=== PATIENT | male | born 1950 | race Caucasian/White ===

== ENCOUNTER 2017-01-28 13:17 | Emergency (ER) | payer MEDICARE ==
[2017-01-28 14:04] LABS: INR 1.5; PARTIAL THROMBOPLASTIN TIME 33 sec (24-38)
[2017-01-28 14:10] LABS: ALBUMIN 4.1 g/dL (3.5-5.0); ALKALINE PHOSPHATASE 47 U/L (38-126); ALT 38 U/L (21-72); AST 19 U/L (17-59); BILIRUBIN, DIRECT 0.8 mg/dL (0.0-0.4); BILIRUBIN, TOTAL 3.1 mg/dL (0.2-1.3); CALCIUM 9.2 mg/dL (8.4-10.2); CHLORIDE 94 mmol/L (98-107); GLUCOSE 118 mg/dL (70-100); SODIUM 129 mmol/L (137-145); TOTAL PROTEIN 7.2 g/dL (6.3-8.2)
[2017-01-28 14:18] LABS: BLOOD UREA NITROGEN 153 mg/dL (9-20)
[2017-01-28 14:19] LABS: EST GLOMERULAR FILTRATION RATE 3 mL/min
[2017-01-28 14:41] LABS: HEMATOCRIT 32.6 % (42.0-54.0); HEMOGLOBIN 11.2 g/dL (14.0-18.0); MEAN CELL VOLUME 107.6 fL (80.0-100.0); MEAN CORPUS. HGB CONCENTRATION 34.2 g/dL (32.0-36.0); MEAN CORPUSCULAR HEMOGLOBIN 36.8 pg (29.0-35.0); MEAN PLATELET VOLUME 10.4 fL (7.4-10.4); PLATELET COUNT 225 X 10^3uL (130-440); RED BLOOD COUNT 3.03 X 10^6uL (4.20-6.10); RED CELL DISTRIBUTION WIDTH 11.8 % (11.5-14.5)
[2017-01-28 14:42] LABS: BAND% (Manual) 0 % (0.0-1.0); BASOPHIL % (Manual) 0 % (0.0-2.0); EOSINOPHIL % (Manual) 0 % (0.0-6.0); LYMPHOCYTE % (Manual) 1 % (20.0-40.0); MONOCYTE % (Manual) 11 % (2.0-10.0); NEUTROPHIL % (Manual) 88 % (54.0-75.0); PLATELET ESTIMATE ADEQUATE
--- NOTE | 2017-01-28 15:05 | CT REPORT ---
HISTORY: Rectal bleeding, hematuria, urinary retention COMPARISON: None. TECHNIQUE: This examination was performed using automated exposure control, adjustment of mA or kV according to patient size, and/or use of iterative reconstruction technique. Axial contiguous images of the abdome n and pelvis were obtained without oral or IV contrast, coronal reformat images also performed. No IV contrast was given due to an elevated creatinine FINDINGS: Lung bases are clear. Heart size is mildly enlarged. A small calcified gallstone is evident. No evide nce for inflammation around the gallbladder. The liver, adrenal glands, and pancreas appear normal given the lack of contrast. The spleen appears absent. There is a small splenule in the splenic bed region. There is mild bilateral hydronephrosis. No renal stone. There is mild to moderate hydroureter bilater ally. In the distal left ureter, there appears to be a nonobstructing small, 1 to 2 mm stone. No othe r ureteral stones. The bladder contains a catheter. There is significant prostatic enlargement. There are some sigmoid diverticula without evidence of acute diverticulitis. The bowel is otherwise u nremarkable given the lack of contrast. There is normal alignment to the lumbar spine. IMPRESSION: Mild bilateral hydronephrosis and hydroureter. No renal stones. There is a questionable small, 1 to 2 mm nonobstructing distal left ureteral stone. More likely the obstruction is likely related to the e nlarged prostate gland. The bladder is unremarkable. Sigmoid diverticulosis without findings of acute diverticulitis. The spleen appears absent. Gallstone without changes of cholecystitis. Final Electronic Signature: This report was electronically signed by Marco Antonio Chavarria MD on 01/28/2017 3 :03 PM. lisandro /
[2017-01-28 15:14] LABS: ABO GROUP TYPE O; ANTIBODY SCREEN NEGATIVE; RH TYPE NEGATIVE
[2017-01-28 15:30] LABS: URINE MUCUS NONE SEEN (Up to 25%)
[2017-01-28 16:15] LABS: URINE APPEARANCE CLEAR; URINE COLOR DARK YELLOW
[2017-01-28 16:16] LABS: URINE BILIRUBIN NEGATIVE (NEGATIVE); URINE BLOOD 50 Ery/uL (2+) (NEGATIVE); URINE GLUCOSE NORMAL (NEGATIVE); URINE KETONE NEGATIVE (NEGATIVE); URINE LEUKOCYTE ESTERASE NEGATIVE (NEGATIVE); URINE NITRITE NEGATIVE (NEGATIVE); URINE PH 5.5 (5-7); URINE PROTEIN NEGATIVE (NEG - TRACE); URINE RBC 0-5/hpf (0-5/hpf); URINE UROBILINOGEN 0.2mg/dL (Normal) (NEG-1mg/dL); URINE WBC 0-4/hpf (0-4/hpf)
[2017-01-28 16:17] LABS: URINE BACTERIA NONE SEEN (<10/hpf); URINE SPERM NONE SEEN; URINE SQUAMOUS EPITHELIAL CELL 0-5/hpf (<= 15/hpf)
--- NOTE | 2017-01-28 16:56 | ER PHYSICIAN DOCUMENTATION ---
Physician Documentation [facility] Name:Harpal Sanchez Age:66 yrs Sex:Male :1950 Arrival Date:01/28/2017 Time:13:17 BedTrauma-A Private MD: Slim Dowling Disposition: 01/30 09:53 Chart complete. tl1 Disposition: 01/28/17 15:51 Transfer ordered to [facility]. Diagnosis are Chronic Renal Failure/Insufficiency, Hyperkalemia, Bleeding Hemorrhoids, Hyperbilirubinemia in [place]. - Reason for transfer: Specialty. - Accepting physician is Mary Castellanos. - Condition is Fair. - Problem is new. - Symptoms are unchanged. COBRA Form completed? Yes Transfer - Mode of Transportation Ambulance HPI: 01/28 13:25 This 66 yrs old Male presents to ER via Walk In with complaints of Rectal tl1 Bleeding. 13:25 The patient presents to the emergency department with bleeding from the rectum/anus, tl1 that is mild. Onset: The symptom(s)/episode began/occurred suddenly, this morning. Context: the patient has a known history of hemorrhoids. History very difficult to ascertain. reports increasingly clouded thinking over the last several weeks. Patient is unable to meaningfully contribute to his history.. Historical: - Allergies: SULFA (SULFONAMIDES); - PMHx: GLUCOSE 6 PHOSPHATE DEHYDROGENASE; DEMENTIA; TBI; THROMBOCYTOPENIA; SLEEP APNEA; PULMONARY EMBOLISM; - PSHx: TONSILLECTOMY; SPLENECTOMY; - Tetanus: < 10 years. - Ebola Screening: : Patient negative for fever greater than or equal to 101.5 degrees Fahrenheit, and additional compatible Ebola Virus Disease symptoms. - Immunization history: Flu Vaccine < 1 year. - Social history: Smoking status: Patient states was never smoker of tobacco. ROS: 10:00 Abdomen/GI: Positive for rectal bleeding. tl1 10:00 Unable to obtain ROS due to baseline dementia, patient's inability to understand questions, speech incomprehensible; sort of a word salad.. Exam: 10:00 Constitutional: This is a well developed, well nourished patient who is awake, alert, tl1 and in no acute distress. 10:00 Head/face: Exam is negative for acute changes. 10:00 Eyes: Exam is negative for acute changes. 10:00 ENT: Mouth: Oral mucosa: pink and intact, dry. 10:00 Neck: ROM/movement: is normal, is supple, Lymph nodes: no appreciated lymphadenopathy. 10:00 Chest/axilla: Palpation: tenderness, is not appreciated. 10:00 Cardiovascular: Rate: normal, Rhythm: regular, Heart sounds: normal, Edema: is not appreciated, JVD: is not appreciated. 10:00 Respiratory: Respirations: normal, Breath sounds: are normal. 10:00 Abdomen/GI: Bowel sounds: normal, Palpation: abdomen is soft and non-tender, Rectal exam: Prostate: enlarged, rectal tone normal, Stool: trace heme positive clear residue. , hemorrhoid(s), external, with inflammation, with pain. 10:00 Musculoskeletal/extremity: Extremities: all appear grossly normal, with no appreciated pain with palpation. 10:00 Skin: Exam negative for acute changes. 10:00 Neuro: Orientation: unable to test, Mentation: slow to respond, Memory: unable to test, Cranial nerves: grossly normal, Motor: moves all fours, Gait: not tested. Vital Signs: 13:45 BP 155 / 65; Pulse 72; Resp 17; Temp 97.9(O); Pulse Ox 95% on R/A; Weight 78.47 kg; rh Height 6 ft. 1 in. (185.42 cm); Pain 5/10; 14:19 BP 155 / 78; Pulse 70; Resp 16; Pulse Ox 92% on R/A; Pain 0/10; rh 15:05 BP 135 / 81; Pulse 79; Resp 15; Pulse Ox 93% on R/A; Pain 0/10; rh 15:42 BP 147 / 88; Pulse 82; Resp 18; Pulse Ox 96% on R/A; Pain 0/10; rh 16:32 BP 162 / 91; Pulse 85; Resp 16; Pulse Ox 94% on R/A; Pain 0/10; rh 13:45 Body Mass Index 22.82 (78.47 kg, 185.42 cm) rh MDM: 13:25 Patient medically screened. tl1 23:52 Differential diagnosis: hemorrhoids, hepatic failure, renal failure, SCHOOL NURSE disease, other tl1 metabolic/drug problems. Data reviewed: vital signs, nurses notes, old medical records, lab test result(s), radiologic studies, and as a result, I will *Transfer Patient. Counseling: I had a detailed discussion with the patient and/or guardian regarding: the historical points, exam findings, and any diagnostic results supporting the discharge/admit diagnosis, lab results, radiology results, the need to transfer to another facility. 23:52 Special discussion: He has an obstructive uropathy with renal failure and needs tl1 transfer for consideration of initiation of hemodyalisis.. ED course: lindsay catheter was placed with return of 2300 ml of clear urine.. 01/28 14:06 Order name: PROTIME/INR; Complete Time: 15:02 EDKY 01/28 Interpretation: Abnormal: PROTIME 19.9; subtherapeutic. tl1 01/28 14:06 Order name: PARTIAL THROMBOPLASTIN TIME; Complete Time: 15:02 EDKY 01/28 15:00 Interpretation: Normal. tl1 01/28 14:19 Order name: BASIC METABOLIC PANEL; Complete Time: 15:02 EDKY 01/28 15:01 Interpretation: Abnormal: SODIUM 129; POTASSIUM 6.0; CHLORIDE 94; CARBON DIOXIDE 14; tl1 GLUCOSE 118; BLOOD UREA NITROGEN 153; CREATININE 16.0. 01/28 14:19 Order name: HEPATIC PANEL; Complete Time: 15:02 EDKY 01/28 15:01 Interpretation: ALT 38; ALBUMIN 4.1; ALKALINE PHOSPHATASE 47; AST 19; BILIRUBIN, TOTAL tl1 3.1; BILIRUBIN, DIRECT 0.8; TOTAL PROTEIN 7.2. 01/28 14:42 Order name: CBC WITHOUT A DIFFERENTIAL; Complete Time: 15:02 EDKY 01/28 15:01 Interpretation: WHITE BLOOD COUNT 16.0; HEMOGLOBIN 11.2; HEMATOCRIT 32.6; MEAN CELL tl1 VOLUME 107.6; PLATELET COUNT 225. 01/28 14:43 Order name: MANUAL DIFFERENTIAL; Complete Time: 15:02 EDKY 01/28 15:02 Interpretation: Normal Except: NEUTROPHIL % (Manual) 88; LYMPHOCYTE % (Manual) 1; tl1 MONOCYTE % (Manual) 11; MACROCYTOSIS 10-19% OF CELLS. 01/28 15:14 Order name: ABO GROUP; Complete Time: 15:46 EDMS 01/28 15:14 Order name: RH TYPE; Complete Time: 15:46 EDKY 01/28 15:14 Order name: ANTIBODY SCREEN; Complete Time: 15:46 EDKY 01/28 16:17 Order name: UA W/ MICRO -CULTURE IF IND; Complete Time: 09:41 EDMS 01/30 09:40 Interpretation: Normal Except: URINE BLOOD 50 Demario/uL (2+). tl1 01/28 15:07 Order name: CAT SCAN; ABD/[place] [id number]; Complete Time: 15:46 EDMS 01/28 13:25 Order name: Continuous Cardiac Monitoring; Complete Time: 13:36 tl1 01/28 13:25 Order name: Hemocult Stool; Complete Time: 13:36 tl1 01/28 13:25 Order name: I & O; Complete Time: 13:36 tl1 01/28 13:25 Order name: IV large bore X 2; Complete Time: 13:36 tl1 01/28 13:25 Order name: NPO; Complete Time: 13:36 tl1 01/28 13:25 Order name: Oxygen; Complete Time: 13:36 tl1 01/28 13:25 Order name: Pulse Ox Continuous; Complete Time: 13:36 tl1 01/28 13:45 Order name: Bladder Scan by RN; Complete Time: 13:55 rh 01/28 13:45 Order name: Bladder Scan by RN; Complete Time: 13:55 tl1 01/28 14:10 Order name: Lindsay; Complete Time: 14:10 rh Dispensed Medications: No medications were administered Signatures: Slim Soliman MD MD [facility] Esha Ty
--- NOTE | 2017-01-28 16:56 | ER NURSING DOCUMENTATION ---
Nurse's Notes [facility] Name:Harpal Sanchez Age:66 yrs Sex:Male :1950 Arrival Date:01/28/2017 Time:13:17 BedTrauma-A Private MD: Diagnosis:Chronic Renal Failure/Insufficiency;Hyperkalemia;Bleeding Hemorrhoids;Hyperbilirubinemia in Presentation: 01/28 13:23 Acuity: CARLOS 2 rh 13:36 Presenting complaint: Patient states: Pt has had some dizziness along with some rectal rh bleeding. Pt reports hx of hemorrhoids and constipation for "some while" . PT was seen by DR bhat and prescribed stool softeners. He had some diarrhea last night, comes in today for some "bloating and abdominal discomfort". Transition of care: Home. 13:36 Method Of Arrival: Walk In Triage Assessment: 13:38 General: Appears in no apparent distress, Behavior is cooperative, Smells of. Pain: rh Complains of pain in suprapubic area, right lower quadrant and left lower quadrant. EENT: Oral mucosa is dry. Neuro: Level of Consciousness is awake, alert, obeys commands, Oriented to person, place, time, event. Cardiovascular: Capillary refill < 3 seconds. Historical: - Allergies: SULFA (SULFONAMIDES); - PMHx: GLUCOSE 6 PHOSPHATE DEHYDROGENASE; DEMENTIA; TBI; THROMBOCYTOPENIA; SLEEP APNEA; PULMONARY EMBOLISM; - PSHx: TONSILLECTOMY; SPLENECTOMY; - Tetanus: < 10 years. - Ebola Screening: : Patient negative for fever greater than or equal to 101.5 degrees Fahrenheit, and additional compatible Ebola Virus Disease symptoms. - Immunization history: Flu Vaccine < 1 year. - Social history: Smoking status: Patient states was never smoker of tobacco. Screenin:46 Infectious Disease Risk None. Abuse screen: Denies threats or abuse. Denies injuries rh from another. Nutritional screening: No deficits noted. Assessment: 13:46 See Triage Assessment done by same RN. 15:00 Reassessment: Pt was cathed and had immediate relief of his abdominal pain, belly is rh soft and non tender now. . 15:21 Reassessment: PT and his sister and very poor medical historians. They do not know if rh he is actually allergic to any medications but state that due to his medical condition he has drug interactions that hose turner poorly. Pt does not know what the name of the hospital he was last at is. Sister is working on contacting daughter to get med hx. However his PCP is no longer at their facility and the daughter can't log in to their hospital portal for PM HX. 15:41 Reassessment: Spoke with power of prosecuting attorney, states that patient should be on a few rh medications, however since he has dementia and can't remember to take the meds, he just isn't taking any meds anymore. . Vital Signs: 13:45 BP 155 / 65; Pulse 72; Resp 17; Temp 97.9(O); Pulse Ox 95% on R/A; Weight 78.47 kg; rh Height 6 ft. 1 in. (185.42 cm); Pain 5/10; 14:19 BP 155 / 78; Pulse 70; Resp 16; Pulse Ox 92% on R/A; Pain 0/10; rh 15:05 BP 135 / 81; Pulse 79; Resp 15; Pulse Ox 93% on R/A; Pain 0/10; rh 15:42 BP 147 / 88; Pulse 82; Resp 18; Pulse Ox 96% on R/A; Pain 0/10; rh 16:32 BP 162 / 91; Pulse 85; Resp 16; Pulse Ox 94% on R/A; Pain 0/10; rh 13:45 Body Mass Index 22.82 (78.47 kg, 185.42 cm) rh ED Course: 13:18 Patient arrived in ED. ama 13:23 Slim Sloiman MD is Attending Physician. tl1 13:23 Triage completed. rh 13:30 Inserted peripheral IV: 20 gauge in left forearm and blood collected. rh 13:35 Esha Ty is Primary Nurse. rh 13:45 Bladder Scan performed. Volume in cc: >1000. rh 13:46 Notified ED Physician of patient's arrival and chief complaint. Dr. Soliman notified. rh 13:46 Valuables Remains with patient Patient has correct armband on for positive rh identification. Placed in gown. Bed in low position. Call light in reach. Side rails up X 1. 14:10 Dejesus cath inserted 16 Fr. Balloon inflated. Urine specimen collected. returned clear rh yellow urine. Patient tolerated well. 14:[address] pm1 14:[address] back from [address]. pm1 Administered Medications: No medications were administered Intake: 16:49 yellow urine rh Output: 14:18 Urine: 2200ml (Dejesus); Total: 2200ml. rh 15:58 Urine: 2000ml (Dejesus); Total: 4200ml. rh 16:49 Urine: 500ml (Dejesus); Total: 4700ml. rh 16:49 yellow urine rh Outcome: 15:51 ER care complete, transfer ordered by . tl1 16:43 Transferred: Patient will be transferred to: [facility]. Facility rh Acceptance Time: January 28, 2017 at 15:55 Patient's face sheet was faxed to accepting facility. Face Sheet included patient's name, address, age, gender, contact information and insurance information. Patient will be transported by: [facility]. Report called to: MICKEY Donato Nurse and Physician Charting and Notes were sent to Accepting Facility. All tests and/or procedures with results, if applicable, were sent to accepting facility. 16:43 Condition: stable 16:43 Discharge Assessment: Patient awake, alert and oriented x 3. No cognitive and/or functional deficits noted. Patient verbalized understanding of disposition instructions. 16:43 Instructed on need for transfer 16:55 Patient left the ED. rh 17:03 Report given to MICKEY Donato [facility] Signatures: Addie Ascencio pm1 Som Maloney, Slim Osei MD MD tl1 Esha Ty rh
== END 2017-01-28 16:56 | disposition short-term general hospital (02) ==
LOC: ER 13:17
DX: N18.9 Chronic kidney disease, unspecified (principal); K64.8 Other hemorrhoids; E87.5 Hyperkalemia; E80.6 Other disorders of bilirubin metabolism; N40.3 Nodular prostate with lower urinary tract symptoms; N20.1 Calculus of ureter; N13.9 Obstructive and reflux uropathy, unspecified; R31.9 Hematuria, unspecified; F03.90 Unspecified dementia, unspecified severity, without behavioral disturbance, psychotic disturbance, mood disturbance, and anxiety; E86.0 Dehydration; Z46.6 Encounter for fitting and adjustment of urinary device; Z79.899 Other long term (current) drug therapy; Z99.89 Dependence on other enabling machines and devices; Z74.3 Need for continuous supervision
CPT/HCPCS: 51702; 74176; 80048; 80076; 81001; 85007; 85027; 85610; 85730; 86850; 86900; 86901; 99284; 99285; A0425; A0429

== ENCOUNTER 2017-02-22 11:56 | Emergency (ER) | payer MEDICARE ==
--- NOTE | 2017-02-22 13:07 | ER NURSING DOCUMENTATION ---
Nurse's Notes [facility] Name:Harpal Sanchez Age:66 yrs Sex:Male :1950 Arrival Date:02/22/2017 Time:11:56 Bed1 Private MD: Diagnosis:Urinary Retention Presentation: 02/22 12:08 Acuity: CARLOS 4 12:15 Presenting complaint: Patient states: Pt is unable to clearly state why he came to the ED. He has memory problems. His sister (contacted by phone), states that pt was concerned about his lindsay coming out. Pt denies any pain or discomfort. Transition of care: patient was not received from another setting of care. 12:15 Method Of Arrival: Private Vehicle Triage Assessment: 12:23 General: Appears in no apparent distress, Behavior is cooperative, pleasant. Pain: tg Denies pain. Neuro: Level of Consciousness is awake, alert, Oriented to person, place. Respiratory: Respiratory effort is even, unlabored. GI: Abdomen is non- distended. : lindsay cath appears in place, urine appears cloudy. Pt was concerned that the lindsay was "coming out," but has been reassured that there is a balloon on the end of the lindsay keeping it in place. Derm: Skin is pink, warm & dry. Historical: - Allergies: SULFA (SULFONAMIDES); - Home Meds: 1. unknown - PMHx: DEMENTIA; TBI; GLUCOSE 6 PHOSPHATE DEHYDROGENASE; THROMBOCYTOPENIA; SLEEP APNEA; PULMONARY EMBOLISM; Chronic Renal Failure/Insufficiency (January 28, 2017); Hyperkalemia (January 28, 2017); Bleeding Hemorrhoids (January 28, 2017); Hyperbilirubinemia in (January 28, 2017); - PSHx: TONSILLECTOMY; SPLENECTOMY; - Tetanus: unknown. - Ebola Screening: : Patient negative for fever greater than or equal to 101.5 degrees Fahrenheit, and additional compatible Ebola Virus Disease symptoms. Patient denies exposure to infectious person. Patient denies travel to an Ebola-affected area in the 21 days before illness onset. No symptoms or risks identified at this time. . - Immunization history: Flu Vaccine unknown. - Social history: Smoking status: unknown if patient ever smoked tobacco. - History obtained from: Previous [facility] visit. Screenin:50 Infectious Disease Risk Unable to Obtain. Abuse screen: Denies threats or abuse. Denies tg injuries from another. Nutritional screening: No deficits noted. Assessment: 13:01 Reassessment: Pt's sister, Jaymie, reports that pt is ok to drive, knows his way home, tg and is able to drive in a safe manner. Pt is steady on his feet, stable gait, and is able to articulate where he lives and how to get there. . Vital Signs: 12:00 BP 155 / 68; Pulse 74; Resp 16; Temp 98.1(O); Pulse Ox 95% on R/A; Pain 0/10; tg ED Course: 12:01 Patient arrived in ED. dp 12:08 Alberto Myers RN is Primary Nurse. tg 12:08 Triage completed. tg 12:23 Ulices Conner MD is Attending Physician. sc 12:28 Arm band placed on Bed in low position HOB Elevated Side rails up x1. tg 12:50 Valuables Remains with patient. tg Administered Medications: No medications were administered Outcome: 13:01 Discharged to home ambulatory. tg 13:01 Condition: stable 13:01 Discharge Assessment: Patient awake and alert. 13:01 Instructed on discharge instructions, follow up and referral plans. 13:03 Discharge ordered by . sc 13:06 Patient left the ED. tg Signatures: Alberto Myers RN RN tg Ulices Conner MD MD sd Lakeisha Brunson dp
--- NOTE | 2017-02-22 13:07 | ER PHYSICIAN DOCUMENTATION ---
Physician Documentation [facility] Name:Harpal Sanchez Age:66 yrs Sex:Male :1950 Arrival Date:02/22/2017 Time:11:56 Bed1 Private MD: Ulices Martin Disposition: 02/22/17 13:03 Discharged to Home/Self Care. Impression: Urinary Retention. - Condition is Good. - Discharge Instructions: URINARY RETENTION, Male, Catheterization, Ureteral - PARNELL CATHETER CARE. - Medical Reconciliation form form. - Follow up: Private Physician; When: 7 - 10 days; Reason: Continuance of care. - Problem is an ongoing problem. - Symptoms are unchanged. HPI: 02/22 12:56 This 66 yrs old Male presents to ER via Private Vehicle with complaints of sc Problem With Urinary Catheter. 12:56 The patient presents with a Parnell catheter problem, was pulled out accidentally. Onset: sc The symptom(s)/episode began/occurred today. Associated signs and symptoms: The patient has no apparent associated signs or symptoms. Severity of symptoms: At their worst the symptoms were very mild. Historical: - Allergies: SULFA (SULFONAMIDES); - Home Meds: 1. unknown - PMHx: DEMENTIA; TBI; GLUCOSE 6 PHOSPHATE DEHYDROGENASE; THROMBOCYTOPENIA; SLEEP APNEA; PULMONARY EMBOLISM; Chronic Renal Failure/Insufficiency (January 28, 2017); Hyperkalemia (January 28, 2017); Bleeding Hemorrhoids (January 28, 2017); Hyperbilirubinemia in [place] (January 28, 2017); - PSHx: TONSILLECTOMY; SPLENECTOMY; - Tetanus: unknown. - Ebola Screening: : Patient negative for fever greater than or equal to 101.5 degrees Fahrenheit, and additional compatible Ebola Virus Disease symptoms. Patient denies exposure to infectious person. Patient denies travel to an Ebola-affected area in the 21 days before illness onset. No symptoms or risks identified at this time. . - Immunization history: Flu Vaccine unknown. - Social history: Smoking status: unknown if patient ever smoked tobacco. - History obtained from: Previous [facility] visit. ROS: 12:57 Constitutional: Negative for fever, chills, and weight loss. sc Eyes: Negative for injury, pain, redness, and discharge. ENT: Negative for injury, pain, and discharge. Neck: Negative for injury, pain, and swelling. Cardiovascular: Negative for chest pain, palpitations, and edema. Respiratory: Negative for shortness of breath, cough, wheezing, and pleuritic chest pain. 12:57 Back: Negative for injury and pain. mn 12:57 : Positive for difficulty urinating, Negative for urinary symptoms. 12:57 Neuro: Positive for very poor memory ? dementia but much improved in past month with parnell placement. Exam: Constitutional: This is a well developed, well nourished patient who is awake, alert, and in no acute distress. Head/Face: Normocephalic, atraumatic. Eyes: Pupils equal round and reactive to light, extra-ocular motions intact. Lids and lashes normal. Conjunctiva and sclera are non-icteric and not injected. Cornea within normal limits. Periorbital areas with no swelling, redness, or edema. Neck: Trachea midline, no thyromegaly or masses palpated, and no cervical lymphadenopathy. Supple, full range of motion without nuchal rigidity, or vertebral point tenderness. No meningismus. Chest/axilla: Normal chest wall appearance and motion. Nontender with no deformity. No lesions are appreciated. Cardiovascular: Regular rate and rhythm with a normal S1 and S2. No gallops, murmurs, or rubs. Normal PMI, no JVD. No pulse deficits. 12:58 Respiratory: Lungs have equal breath sounds bilaterally, clear to auscultation and mn percussion. No rales, rhonchi or wheezes noted. No increased work of breathing, no retractions or nasal flaring. 12:58 : CVA tenderness, is absent, Bladder: is normal, a parnell is noted, urine is clear. 12:58 Neuro: Memory: immediate memory is intact, remote memory is impaired, recent memory is impaired, discussed care with his sister, urology follow up in 10 days, taking flomax, concern today was that parnell may have pulled out but inspection is ok. Vital Signs: 12:00 BP 155 / 68; Pulse 74; Resp 16; Temp 98.1(O); Pulse Ox 95% on R/A; Pain 0/10; tg MDM: 12:23 Patient medically screened. mn 13:01 Differential diagnosis: UTI, urinary retention, Parnell catheter problem. Data reviewed: mn vital signs, nurses notes, old medical records, and as a result, I will discharge patient. Counseling: I had a detailed discussion with the patient and/or guardian regarding: the historical points, exam findings, and any diagnostic results supporting the discharge/admit diagnosis, the need for outpatient follow up, to return to the emergency department if symptoms worsen or persist or if there are any questions or concerns that arise at home. Dispensed Medications: No medications were administered Signatures: Alberto Myers RN RN tg Chew, Scott, MD MD mn
== END 2017-02-22 13:07 | disposition home or self-care (01) ==
LOC: ER 11:56
DX: R33.9 Retention of urine, unspecified (principal); Z46.6 Encounter for fitting and adjustment of urinary device; F03.90 Unspecified dementia, unspecified severity, without behavioral disturbance, psychotic disturbance, mood disturbance, and anxiety; Z79.899 Other long term (current) drug therapy
CPT/HCPCS: 99281; 99282

== ENCOUNTER 2017-03-05 18:29 | Emergency (ER) | payer MEDICARE ==
[2017-03-05] MEDS ORDERED: WATER IRRIG 1,000 ML BOTTLE ONE (19:49)
[2017-03-05 20:09] LABS: URINE MUCUS NONE SEEN (Up to 25%); URINE SQUAMOUS EPITHELIAL CELL NONE SEEN (<= 15/hpf)
[2017-03-05 20:23] LABS: URINE APPEARANCE CLOUDY; URINE COLOR YELLOW; URINE LEUKOCYTE ESTERASE 25 WBC/uL (1+) (NEGATIVE); URINE NITRITE POSITIVE (NEGATIVE); URINE SPECIFIC GRAVITY 1.015 (0.001-1.035)
[2017-03-05 20:24] LABS: URINE BILIRUBIN NEGATIVE (NEGATIVE); URINE BLOOD 50 Ery/uL (2+) (NEGATIVE); URINE GLUCOSE NORMAL (NEGATIVE); URINE KETONE NEGATIVE (NEGATIVE); URINE PROTEIN 100mg/dL (2+) (NEG - TRACE); URINE UROBILINOGEN 0.2mg/dL (Normal) (NEG-1mg/dL)
[2017-03-05 20:27] LABS: URINE BACTERIA >50 ORGANISMS/hpf (<10/hpf)
--- NOTE | 2017-03-05 20:37 | ER PHYSICIAN DOCUMENTATION ---
Physician Documentation [facility] Name:Harpal Sanchez Age:66 yrs Sex:Male :1950 Arrival Date:03/05/2017 Time:18:29 Bed5 Private MD: Slim Dowling Disposition: 03/06 03:38 Chart complete. tl1 Disposition: 03/05/17 20:16 Discharged to Home/Self Care. Impression: Urinary Tract Infection (UTI) - POSSIBLE. - Condition is Good. - Discharge Instructions: BLADDER INFECTION, Male (Adult). - Medical Reconciliation form form. - Follow up: Radha Manuel MD; When: Tomorrow; Reason: Recheck today's complaints. - Problem is new. - Symptoms have improved. - Notes: YOU PROBABLY DO NOT HAVE A URINARY TRACT INFECTION NOW. A URINE CULTURE HAS BEEN SENT. YOU SHOULD FOLLOW UP SCHEDULED TOMORROW IN THE [facility]. MAKE SURE YOUR PARNELL BAG IS HANGING DOWN LOW POSSIBLE HPI: 03/05 19:00 This 66 yrs old Male presents to ER via Private Vehicle with complaints of tl1 Urinary Problem. 19:00 The patient presents with a Parnell catheter problem, is not draining. Onset: The tl1 symptom(s)/episode began/occurred gradually, today. He has severe dementia and trouble with the history. he is here by himself. He thinks his parnell may not be draining, but is unable to give specifics. He has no other complaints. Denied f/c/s/. No flank pain or abdominal/suprapubic pain. He has no other complaints.. Historical: - Allergies: SULFA (SULFONAMIDES); - Home Meds: 1. unknown - PMHx: DEMENTIA; TBI; GLUCOSE 6 PHOSPHATE DEHYDROGENASE; THROMBOCYTOPENIA; SLEEP APNEA; PULMONARY EMBOLISM; Chronic Renal Failure/Insufficiency (January 28, 2017); Hyperkalemia (January 28, 2017); Bleeding Hemorrhoids (January 28, 2017); Hyperbilirubinemia in [place] (January 28, 2017); Urinary Retention (February 22, 2017); Urinary Retention (February 22, 2017); Urinary Retention (February 22, 2017); - PSHx: TONSILLECTOMY; SPLENECTOMY; - Tetanus: unknown. - Ebola Screening: : Patient negative for fever greater than or equal to 101.5 degrees Fahrenheit, and additional compatible Ebola Virus Disease symptoms. Patient denies exposure to infectious person. Patient denies travel to an Ebola-affected area in the 21 days before illness onset. No symptoms or risks identified at this time. . - Immunization history: Pneumococcal vaccine status is unknown, Flu Vaccine unknown. - Social history: Smoking status: Patient states was never smoker of tobacco. Patient/guardian denies using alcohol. ROS: 19:00 : Negative for urinary symptoms, hematuria, pelvic pain, flank pain, penile tl1 discharge, penile pain. 19:00 All other systems are negative. Exam: 19:00 Constitutional: This is a well developed, well nourished patient who is awake, alert, tl1 and in no acute distress. 19:00 Cardiovascular: Rate: normal. 19:00 Respiratory: Respirations: normal. 19:00 : CVA tenderness, is absent, Bladder: tenderness, is not appreciated. Vital Signs: 18:34 BP 134 / 83; Pulse 77; Resp 16; Temp 99.2(O); Pulse Ox 93% on R/A; Weight 74.84 kg; arc Height 6 ft. 1 in. (185.42 cm); Pain 1/10; 19:48 BP 134 / 80; Pulse 66; Pulse Ox 94% on R/A; Pain 0/10; sj 18:34 Body Mass Index 21.77 (74.84 kg, 185.42 cm) arc MDM: 18:46 Patient medically screened. sc 20:00 Differential diagnosis: UTI, urinary retention, Parnell catheter problem. Data reviewed: tl1 vital signs, nurses notes, lab test result(s), urinalysis, and as a result, I will discharge patient. Counseling: I had a detailed discussion with the patient and/or guardian regarding: the historical points, exam findings, and any diagnostic results supporting the discharge/admit diagnosis, lab results, the need for outpatient follow up, with the patient's primary care provider, tomorrow, as scheduled., to return to the emergency department if symptoms worsen or persist or if there are any questions or concerns that arise at home. Response to treatment: There is no appreciated change of the patient's symptoms at this time, and as a result, I will discharge patient. Special discussion: There does not seem to be a problem with his Parnell catheter now. He was provided fluid and had good urine output. The parnell flushed easily and drained well. The urine is dirty, consistent with penitentiary presence of a catheter and bladder colonization, but it is not clear that he has a UTI. I think it is appropriate to wait for urine culture results and treat accordingly. I don't think he needs treatment acutely. He has an appointment tomorrow, as best as we can determine, with his PCP at the [facility].. ED course: Rested comfortably without complaint.. 03/05 20:29 Order name: UA W/ MICRO -CULTURE IF IND; Complete Time: 03:39 EDMS 03/06 03:39 Interpretation: Abnormal: URINE COLOR YELLOW; URINE APPEARANCE CLOUDY; URINE LEUKOCYTE tl1 ESTERASE 25 WBC/uL (1+); URINE NITRITE POSITIVE; URINE PROTEIN 100mg/dL (2+); URINE RBC 5-10/hpf; URINE WBC 10-25/hpf; URINE BACTERIA >50 ORGANISMS/hpf. 03/06 10:07 Order name: URINE CULTURE EDMS Dispensed Medications: No medications were administered Point of Care Testing: Urine Dip: 19:46 pH: 7.0; ; Specific [place]: 1.010; Ketones: Negative; Glucose: Negative; Protein: sj Positive (++); Leukocytes: Positive; Nitrite: Negative ; Blood: Large (+++); Bilirubin: Negative ; Urobilinogen: Normal Signatures: Ulices Conner MD MD ia Slim Soliman MD MD tl1 Mary Barton
--- NOTE | 2017-03-05 20:37 | ER NURSING DOCUMENTATION ---
Nurse's Notes [facility] Name:Harpal Sanchez Age:66 yrs Sex:Male :1950 Arrival Date:03/05/2017 Time:18:29 Bed5 Private MD: Diagnosis:Urinary Tract Infection (UTI)-POSSIBLE Presentation: 03/05 18:35 Acuity: CARLOS 4 rh 18:45 Presenting complaint: Patient states: indwelling catheter with poor urine output for sj last 2 to 3 days. Transition of care: Home. Notified ED Physician of patient's arrival and CC Dr. Conner notified. 18:45 Method Of Arrival: Private Vehicle sj Triage Assessment: 18:58 General: Appears in no apparent distress, Behavior is cooperative, pleasant. Pain: sj Denies pain. Neuro: Level of Consciousness is awake, alert, confused, Oriented to person, place, time, event, very poor short term memory. Unable to recall if he is drinking fluids, how much he emptied from catheter last night or this morning.. Cardiovascular: Capillary refill < 3 seconds. Respiratory: Respiratory effort is even, unlabored, Respiratory pattern is regular, symmetrical. : Dejesus in place Urine is bag is currently empty. Given tall glass of water. Reports poor urine output. Historical: - Allergies: SULFA (SULFONAMIDES); - Home Meds: 1. unknown - PMHx: DEMENTIA; TBI; GLUCOSE 6 PHOSPHATE DEHYDROGENASE; THROMBOCYTOPENIA; SLEEP APNEA; PULMONARY EMBOLISM; Chronic Renal Failure/Insufficiency (January 28, 2017); Hyperkalemia (January 28, 2017); Bleeding Hemorrhoids (January 28, 2017); Hyperbilirubinemia in (January 28, 2017); Urinary Retention (February 22, 2017); Urinary Retention (February 22, 2017); Urinary Retention (February 22, 2017); - PSHx: TONSILLECTOMY; SPLENECTOMY; - Tetanus: unknown. - Ebola Screening: : Patient negative for fever greater than or equal to 101.5 degrees Fahrenheit, and additional compatible Ebola Virus Disease symptoms. Patient denies exposure to infectious person. Patient denies travel to an Ebola-affected area in the 21 days before illness onset. No symptoms or risks identified at this time. . - Immunization history: Pneumococcal vaccine status is unknown, Flu Vaccine unknown. - Social history: Smoking status: Patient states was never smoker of tobacco. Patient/guardian denies using alcohol. Screenin:02 Infectious Disease Risk Other: unknown. Abuse screen: Denies threats or abuse. Denies sj injuries from another. Nutritional screening: No deficits noted. Assessment: 19:47 Reassessment: urine obtained directly from catheter, then flushed cath with 60 ml sj sterile water. Flushes easily. Drains well once put to gravity.. Vital Signs: 18:34 BP 134 / 83; Pulse 77; Resp 16; Temp 99.2(O); Pulse Ox 93% on R/A; Weight 74.84 kg; arc Height 6 ft. 1 in. (185.42 cm); Pain 1/10; 19:48 BP 134 / 80; Pulse 66; Pulse Ox 94% on R/A; Pain 0/10; sj 18:34 Body Mass Index 21.77 (74.84 kg, 185.42 cm) arc ED Course: 18:30 Patient arrived in ED. jt 18:35 Triage completed. 18:45 Mary Barton is Primary Nurse. sj 18:46 Ulices Conner MD is Attending Physician. vt 19:02 Notified ED Physician of patient's arrival and chief complaint. Dr. Soliman notified. sj 19:03 Valuables Remains with patient Patient has correct armband on for positive sj identification. Bed in low position. Call light in reach. Side rails up X 1. Pulse Ox - RN Monitoring Only NIBP On - RN Monitoring Only. 19:36 Attending Physician role handed off by Ulices Conner MD tl1 19:36 Slim Soliman MD is Attending Physician. tl1 20:15 Radha Manuel MD is Referral Physician. tl1 Administered Medications: No medications were administered Point of Care Testing: Urine Dip: 19:46 pH: 7.0; ; Specific [place]: 1.010; Ketones: Negative; Glucose: Negative; Protein: sj Positive (++); Leukocytes: Positive; Nitrite: Negative ; Blood: Large (+++); Bilirubin: Negative ; Urobilinogen: Normal Intake: 20:36 PO: 480ml; Total: 480ml. sj Output: 20:36 Urine: 700ml (Dejesus); Total: 700ml. sj Outcome: 20:16 Discharge ordered by . tl1 20:36 Discharged to home ambulatory, with family. sj 20:36 Condition: improved 20:36 Instructed on discharge instructions, follow up and referral plans. Demonstrated understanding of instructions. 20:36 Patient left the ED. 03/06 14:15 Discharge F/U Call: Unable to reach: no answer olga Signatures: Payal Brice, RN RN Ulices Chadwick MD MD vt Janny, MD CARMEN Smalls tl1 Cristiana Conner, Collins Ty, Esha Chase, Mary Warren
== END 2017-03-05 20:37 | disposition home or self-care (01) ==
LOC: ER 18:29
DX: T83.9XXA Unspecified complication of genitourinary prosthetic device, implant and graft, initial encounter (principal); R82.99 Other abnormal findings in urine; F03.90 Unspecified dementia, unspecified severity, without behavioral disturbance, psychotic disturbance, mood disturbance, and anxiety; N18.9 Chronic kidney disease, unspecified
CPT/HCPCS: 81001; 87077; 87086; 99282; A4217

== ENCOUNTER 2017-03-07 19:00 | Observation (INO) | payer MEDICARE ==
[2017-03-07 20:01] LABS: BLOOD UREA NITROGEN 25 mg/dL (9-20); CALCIUM 9.7 mg/dL (8.4-10.2); CHLORIDE 102 mmol/L (98-107); EST GLOMERULAR FILTRATION RATE > 60 mL/min; GLUCOSE 105 mg/dL (70-100); POTASSIUM 3.8 mmol/L (3.5-5.1); SODIUM 139 mmol/L (137-145)
[2017-03-07 20:09] LABS: HEMOGLOBIN 11.9 g/dL (14.0-18.0); MEAN CORPUSCULAR HEMOGLOBIN 37.5 pg (29.0-35.0); RED BLOOD COUNT 3.17 X 10^6uL (4.20-6.10); WHITE BLOOD COUNT 10.3 X 10^3uL (3.9-10.7)
[2017-03-07 20:10] LABS: PLATELET COUNT 371 X 10^3uL (130-440); RED CELL DISTRIBUTION WIDTH 9.1 % (11.5-14.5)
[2017-03-07] MEDS ORDERED: NORMAL SALINE MINI-BAG+ 100 ML IV ONE (20:10)
[2017-03-07] MEDS ORDERED: cefTRIAXone SODIUM 1,000 MG/10 ML VIAL ONE (20:10)
[2017-03-07 20:11] LABS: LYMPHOCYTES 22.3 % (20.0-40.0); MEAN PLATELET VOLUME 8.4 fL (7.4-10.4); NEUTROPHILS 61.3 % (54.0-75.0)
[2017-03-07 20:12] LABS: BASOPHIL# 0.1 X 10^3uL (0.0-0.1); BASOPHILS 0.8 % (0.0-2.0); EOSINOPHILS 2.6 % (0.0-6.0); EOSINOPHILS# 0.3 X 10^3uL (0.0-0.4); LYMPHOCYTES# 2.3 X 10^3uL (0.8-3.8); MONOCYTES# 1.3 X 10^3uL (0.2-1.0); NEUTROPHILS# 6.3 X 10^3uL (2.6-6.7)
[2017-03-07] MEDS ORDERED: ACETAMINOPHEN 325 MG TABLET PO PRN (20:45)
[2017-03-07] MEDS ORDERED: HOME MEDICATION LIST NEEDED 1 EA EACH MISC ONE (20:45)
[2017-03-07] MEDS ORDERED: ONDANSETRON ODT 4 MG TAB.RAPDIS PO PRN (20:45)
[2017-03-07 20:53] LABS: INR 1.4
[2017-03-07] MEDS ORDERED: NORMAL SALINE MINI IV SCH (21:00)
[2017-03-07] MEDS ORDERED: CEFTRIAXONE SODIUM IV SCH (21:00)
[2017-03-07] MEDS ORDERED: WARFARIN SODIUM 5 MG TABLET PO ONE (21:28)
[2017-03-07] MEDS: NORMAL SALINE 1,000 ML IV SCH (22:04)
[2017-03-08 06:00] LABS: BLOOD UREA NITROGEN 16 mg/dL (9-20); CALCIUM 9.1 mg/dL (8.4-10.2); CHLORIDE 107 mmol/L (98-107); EST GLOMERULAR FILTRATION RATE > 60 mL/min; GLUCOSE 94 mg/dL (70-100); POTASSIUM 3.9 mmol/L (3.5-5.1); SODIUM 140 mmol/L (137-145)
[2017-03-08 06:16] LABS: HEMATOCRIT 33.8 % (42.0-54.0); HEMOGLOBIN 11.2 g/dL (14.0-18.0); LYMPHOCYTES 16.8 % (20.0-40.0); MEAN CORPUS. HGB CONCENTRATION 33.2 g/dL (32.0-36.0); MEAN CORPUSCULAR HEMOGLOBIN 38.2 pg (29.0-35.0); MEAN PLATELET VOLUME 8.8 fL (7.4-10.4); NEUTROPHILS 68.2 % (54.0-75.0); PLATELET COUNT 339 X 10^3uL (130-440); RED BLOOD COUNT 2.94 X 10^6uL (4.20-6.10); RED CELL DISTRIBUTION WIDTH 8.3 % (11.5-14.5); WHITE BLOOD COUNT 11.6 X 10^3uL (3.9-10.7)
[2017-03-08 06:17] LABS: BASOPHIL# 0.1 X 10^3uL (0.0-0.1); BASOPHILS 0.3 % (0.0-2.0); EOSINOPHILS 2.7 % (0.0-6.0); EOSINOPHILS# 0.3 X 10^3uL (0.0-0.4); MONOCYTES 11.7 % (2.0-10.0); MONOCYTES# 1.4 X 10^3uL (0.2-1.0); NEUTROPHILS# 7.9 X 10^3uL (2.6-6.7)
[2017-03-08] MEDS: NORMAL SALINE 1,000 ML IV SCH ×2 (07:24→17:22)
--- NOTE | 2017-03-08 08:40 | ER PHYSICIAN DOCUMENTATION ---
Physician Documentation [facility] Name:Harpal Sanchez Age:66 yrs Sex:Male :1950 Arrival Date:03/07/2017 Time:19:00 Bed4 Private MD:Physician, No ED Benny Mcghee Disposition: 03/07/17 20:43 Admit ordered for Koffi King. Preliminary diagnosis are Urinary Tract Infection (UTI), Confusion. - Bed requested for Medical/Surgical. - Condition is Fair. - Problem is new. - Symptoms are unchanged. 23 HR OBS Yes HPI: 03/07 20:18 This 66 yrs old Male presents to ER with complaints of Urinary Problem. ak 20:18 The patient presents with returns with concern of some discolor in catheter of urine. ak pt is a little bit of a difficult historian, relates that he has some trouble with timeline of this process, after discussing with pt as well as, with his permission, sister, pt moved here 1mo ago, prev in [facility], there he was having some urinary retention, prior to moving here 1mo ago had some hesitancy, actually saw uro there in [place], on 2 prostate meds, also on coumadin for g6pd def, also sees psych there, pt and sister relate some past stressors incl divorce and trauma, poss pseudodementia with depression, now about to transfer care to [facility], apparently pending Dr. Kaleb marie, has been to ED several times, apparently once in retention, had lindsay placed, had urine culture, this is growing but has not finalized, no abx as of yet. pt is also on psych med, cannot recall names. 20:22 of his meds. states no hx of bleeding and no other areas of bleeding, denies hx of uti. ak . 22:41 Associated signs and symptoms: Pertinent negatives: abdominal pain, constipation, ak diarrhea, dysuria, fever, nausea, vomiting. Severity of symptoms: At their worst the symptoms were mild, in the emergency department the symptoms are unchanged. Historical: - Allergies: SULFA (SULFONAMIDES); - Home Meds: 1. unknown - PMHx: DEMENTIA; TBI; GLUCOSE 6 PHOSPHATE DEHYDROGENASE; THROMBOCYTOPENIA; SLEEP APNEA; PULMONARY EMBOLISM; Chronic Renal Failure/Insufficiency (January 28, 2017); Hyperkalemia (January 28, 2017); Bleeding Hemorrhoids (January 28, 2017); Urinary Retention (February 22, 2017); Urinary Tract Infection (UTI) - POSSIBLE(March 05, 2017); - PSHx: TONSILLECTOMY; SPLENECTOMY; - Tetanus: < 10 years. - Ebola Screening: : Patient negative for fever greater than or equal to 101.5 degrees Fahrenheit, and additional compatible Ebola Virus Disease symptoms. Patient denies exposure to infectious person. Patient denies travel to an Ebola-affected area in the 21 days before illness onset. . - Family history: No immediate family members are acutely ill. - Immunization history: Pneumococcal vaccine is up to date, Flu Vaccine >1 year. - Social history: Smoking status: unknown if patient ever smoked tobacco. ROS: 20:37 : Positive for urinary symptoms, hematuria, Negative for pelvic pain, flank pain. ak 20:37 Neuro: Positive for increased forgetfulness, Negative for dizziness, headache, numbness, seizure activity, speech changes, syncope, negative for any marked changed in mental status although is more forgetful. 20:37 Psych: Positive for anxiety, depression, Negative for drug dependence, alcohol dependence, auditory hallucinations, visual hallucinations. 20:37 All other systems are negative. 22:41 Constitutional: Positive for fatigue, Negative for chills, fever, malaise, poor PO ak intake. Exam: 20:38 Constitutional: This is a well developed, well nourished patient who is awake, alert, ak and in no acute distress. 20:38 Cardiovascular: Rate: normal, Rhythm: regular. 20:38 Respiratory: the patient does not display signs of respiratory distress, Respirations: normal. 20:38 Abdomen/GI: Inspection: abdomen appears normal. 20:38 Abdomen/GI: Palpation: abdomen is soft and non-tender. 20:38 : CVA tenderness, is absent, Bladder: is normal, non-distended, non-tender, decompressed bladder on sono with balloon in bladder, normal inspection. lindsay in place. does have some red tinged urine in lindsay line. 20:38 Neuro: Orientation: aware of person, place, can recall some recent events but timeline distorted, aware of current problems, drove here to [facility] from his cabin, Mentation: lucid, able to follow commands, Motor: is normal, Sensation: is normal. Vital Signs: 19:12 BP 155 / 84; Pulse 98; Resp 17; Temp 98.9(TE); Pulse Ox 95% on R/A; Weight 74.84 kg; rh Height 6 ft. 1 in. (185.42 cm); Pain 3/10; 21:04 BP 122 / 74; Pulse 77; Resp 16; Pulse Ox 95% on R/A; Pain 0/10; rh 19:12 Body Mass Index 21.77 (74.84 kg, 185.42 cm) rh MDM: 19:27 Patient medically screened. ak 20:40 Differential diagnosis: pyelo, sepsis, uti, dementia, delerium. Data reviewed: vital ak signs, nurses notes, old medical records, lab test result(s), radiologic studies, and as a result, I will admit patient. ED course: d/w sister, pt, given worsening forgetfulness, my assessment currently, uti needs treatment, will start abx now, admit to ensure mental status improves, d/w Dr. Wolf who will admit, also nursing contacted pt's family who will bring up med list in am, cannot do so now. pt clinically physically appears well but definitely has some memory issues. bp mildly elevated but HD stable, not septic appearing. . 22:43 ED course: had noted inr, on coumadin, will give 10mg now, this should take care of VTE ak risk as well as help to bring back to therapeutic levels. treat uti. most likely hemorrhagic cystitis. . 03/07 20:03 Order name: BASIC METABOLIC PANEL [facility] 03/07 20:14 Order name: CBC AUTO DIF, MDIF/RMOR IF IND [facility] 03/07 20:54 Order name: PROTIME/INR [facility] 03/08 06:06 Order name: BASIC METABOLIC PANEL [facility] 03/08 06:18 Order name: CBC AUTO DIF, MDIF/RMOR IF IND [facility] 03/07 19:37 Order name: Urine Dip; Complete Time: 19:52 ak 03/07 19:38 Order name: Iv Saline Lock; Complete Time: 19:46 rh Dispensed Medications: 19:46 Drug: NS 0.9% 1000 ml; Route: IV; Rate: bolus; Site: left antecubital; rh 20:41 Follow up: IV Status: Completed infusion; IV Intake: 1000ml rh 19:57 Drug: Rocephin 1 grams; Route: IVPB; Site: left antecubital; rh 20:30 Follow up: IV Status: Completed infusion; IV Intake: 100ml rh 21:06 CANCELLED (Physician Discretion): Norvasc 5 mg PO once bw2 21:14 Drug: Coumadin 10 mg; Route: PO; rh 21:14 Follow up: Response: No adverse reaction rh Point of Care Testing: Urine Dip: 19:52 pH: 8.5; ; Specific [place]: 1.010; Ketones: Trace; Glucose: Negative; Protein: rh Positive (+++); Leukocytes: Positive; Nitrite: Negative ; Blood: Large (+++); Bilirubin: Small (+) ; Urobilinogen: Moderate Signatures: Payal Brice RN RN Esha Ty Benny Kurtz MD MD ks Spencer, [facility] bw2
--- NOTE | 2017-03-08 08:40 | ER NURSING DOCUMENTATION ---
Nurse's Notes [facility] Name:Harpal Sanchez Age:66 yrs Sex:Male :1950 Arrival Date:03/07/2017 Time:19:00 Bed4 Private MD:Physician, No Diagnosis:Urinary Tract Infection (UTI);Confusion Presentation: 03/07 19:03 Acuity: CARLOS 3 lp 21:32 Presenting complaint: Patient states: Pt states he has blood in the urine. Transition rh of care: Home. 21:32 Method Of Arrival: Private Vehicle Triage Assessment: 19:08 General: Appears in no apparent distress, Behavior is appropriate for age. rh 19:57 Pain: Complains of pain in groin. Neuro: Level of Consciousness is awake, alert, obeys commands, Oriented to person, place. Cardiovascular: Capillary refill < 3 seconds. Respiratory: Airway is patent Respiratory effort is even, unlabored, Denies shortness of breath. GI: Abdomen is non- distended Denies nausea. : Dejesus in place to gravity drainage Reports pain. Derm: Skin is intact, is healthy with good turgor, Skin is pink, warm & dry. Historical: - Allergies: SULFA (SULFONAMIDES); - Home Meds: 1. unknown - PMHx: DEMENTIA; TBI; GLUCOSE 6 PHOSPHATE DEHYDROGENASE; THROMBOCYTOPENIA; SLEEP APNEA; PULMONARY EMBOLISM; Chronic Renal Failure/Insufficiency (January 28, 2017); Hyperkalemia (January 28, 2017); Bleeding Hemorrhoids (January 28, 2017); Urinary Retention (February 22, 2017); Urinary Tract Infection (UTI) - POSSIBLE(March 05, 2017); - PSHx: TONSILLECTOMY; SPLENECTOMY; - Tetanus: < 10 years. - Ebola Screening: : Patient negative for fever greater than or equal to 101.5 degrees Fahrenheit, and additional compatible Ebola Virus Disease symptoms. Patient denies exposure to infectious person. Patient denies travel to an Ebola-affected area in the 21 days before illness onset. . - Family history: No immediate family members are acutely ill. - Immunization history: Pneumococcal vaccine is up to date, Flu Vaccine >1 year. - Social history: Smoking status: unknown if patient ever smoked tobacco. Screenin:12 Infectious Disease Risk None. Abuse screen: Denies threats or abuse. Denies injuries rh from another. Nutritional screening: No deficits noted. Assessment: 19:13 : Dejesus in place to gravity drainage Urine is blood tinged, Genitalia appear normal rh Reports pain urethra. 19:19 Reassessment: Spoke with patients sister with his permission, she states that he is rh forgetful and has dementia and forgets about his catheter a lot and has short term memory loss. He lives with the sister and her . Sister is in [place] currently. Vital Signs: 19:12 BP 155 / 84; Pulse 98; Resp 17; Temp 98.9(TE); Pulse Ox 95% on R/A; Weight 74.84 kg; rh Height 6 ft. 1 in. (185.42 cm); Pain 3/10; 21:04 BP 122 / 74; Pulse 77; Resp 16; Pulse Ox 95% on R/A; Pain 0/10; rh 19:12 Body Mass Index 21.77 (74.84 kg, 185.42 cm) rh ED Course: 19:01 Patient arrived in ED. ds 19:02 Physician, No is Private Physician. ds 19:03 Triage completed. lp 19:11 Esha Ty is Primary Nurse. rh 19:12 Notified ED Physician Other physician notified: DR KURTZ. rh 19:27 Benny Kurtz MD is Attending Physician. ak 20:41 Valuables Remains with patient Patient has correct armband on for positive rh identification. Placed in gown. Bed in low position. Call light in reach. Side rails up X 1. Warm blanket given. Pillow given. 20:43 Koffi King MD is Admitting Physician. ak Administered Medications: 19:46 Drug: NS 0.9% 1000 ml; Route: IV; Rate: bolus; Site: left antecubital; rh 20:41 Follow up: IV Status: Completed infusion; IV Intake: 1000ml rh 19:57 Drug: Rocephin 1 grams; Route: IVPB; Site: left antecubital; rh 20:30 Follow up: IV Status: Completed infusion; IV Intake: 100ml rh 21:06 CANCELLED (Physician Discretion): Norvasc 5 mg PO once bw2 21:14 Drug: Coumadin 10 mg; Route: PO; rh 21:14 Follow up: Response: No adverse reaction rh Point of Care Testing: Urine Dip: 19:52 pH: 8.5; ; Specific [place]: 1.010; Ketones: Trace; Glucose: Negative; Protein: rh Positive (+++); Leukocytes: Positive; Nitrite: Negative ; Blood: Large (+++); Bilirubin: Small (+) ; Urobilinogen: Moderate Intake: 20:30 IV: 100ml; Total: 100ml. rh 20:41 IV: 1000ml; Total: 1100ml. Outcome: 20:43 Decision to Admit by Provider. ct 21:32 Admitted to Med/surg accompanied by nurse, via stretcher, with chart. 21:32 Condition: stable 21:32 Discharge Assessment: Patient awake, alert and oriented x 3. No cognitive and/or functional deficits noted. Patient verbalized understanding of disposition instructions. 21:32 Instructed on need to admit 21:33 Patient left the ED. Signatures: Payal Brice RN RN Cristina Morales, Esha Coelho Benny Kurtz MD MD ak [place], [place] [id number]
[2017-03-08] MEDS: WARFARIN SODIUM 2 MG TABLET PO SCH (16:21)
[2017-03-08] MEDS: FINASTERIDE 5 MG TABLET PO SCH (16:21)
--- NOTE | 2017-03-08 18:12 | HISTORY & PHYSICAL ---
DATE OF ADMISSION: 03/07/17 ATTENDING PHYSICIAN: Koffi King MD CHIEF COMPLAINT: Confusion. HISTORY OF PRESENT ILLNESS: Patient is a 66-year-old male who presented to the Emergency Room with dysuria with discoloration of the urine in his Dejesus catheter. No fevers or chills. Apparently he had some issues with urinary retention about 1 month ago for which he was seen by Urology in [place], [place] and was prescribed 2 prostate medications. Patient has dementia and is an extremely poor historian. 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 Patient's sister is moving him from [place], [place] to [place] so she can take care of him in the home setting ( I spoke with her by telephone). She is under a great deal of stress trying to sell some property in [place], and making various other arrangements for him. Patient is here with his [id number] and neither of us have full information available. ALLERGIES: Sulfa. MEDICATIONS Donepezil (Aricept) 10 mg p.o. q.h.s. Finasteride 5mg p.o. daily. Tamsulosin0.4 mg p.o. q.h.s. Warfarin 6 mg p.o. daily. Note that patient's compliance is poor, but hopefully will improve when he lives with his sister. PAST MEDICAL HISTORY 1. Dementia. 2. Glucose-6 phosphate dehydrogenate deficiency. 3. 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 4. Sleep apnea for which he uses CPAP. 5. Pulmonary embolism for which he is on Coumadin. 6. History of chronic renal insufficiency presumably related to urinary retention and BPH, now improved. 7. History of bleeding hemorrhoids. 8. Tonsillectomy. SOCIAL HISTORY: , no children. 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 No smoking. No alcohol. No street drugs. FAMILY HISTORY: Father with history of PTSD and alcoholism. REVIEW OF SYSTEMS: No heart, emphysema or asthma, kidney infections or stones, liver, diabetes, thyroid, seizures, peptic ulcer disease, hypertension, hyperlipidemia, skin, allergy or bleeding disorders. No nocturia. PREVENTATIVE HEALTH: Does not get flu shots. He thinks that he has never had a pneumonia shot or Meningococcus vaccine (his sister thinks that is the case, and it would be beneficial to get these in the near future. PHYSICAL EXAMINATION GENERAL: Well-developed, well-nourished elderly male, NAD, alert but orientation status is not clear. Patient obviously has significant dementia and confabulates and is a very poor historian. HEENT: EOMI. Pupils are equally round and reactive to light. Normal conjunctivae. TMs normal. No coryza. Pharynx not injected. Midline structures. NECK: No lymphadenopathy. No thyromegaly. No carotid bruits. Neck supple. CHEST: Clear. No rales, rhonchi or wheezes. Good breath sounds and symmetry throughout. COR: RRR without murmurs, gallops, rubs or clicks. No jugular venous distention. No ectopy. ABDOMEN: Soft, nontender. No hepatosplenomegaly. No masses. No bruits. No inguinal nodes. Bowel sounds present. BACK: No CVA tenderness on percussion. LOWER EXTREMITIES: No edema. Peripheral pulses present. NEUROLOGIC: Cranial nerves 2-12 intact. Motor 5/5. Sensory intact. ASSESSMENT 1. Altered mental status. 2. Urinary tract infection, most likely contributing to #1. 3. Dementia, most likely contributing to #1. 4. Glucose-6 phosphate dehydrogenate deficiency. 5. Splenectomy for history of thrombocytopenia. 6. Pulmonary embolism, on Warfarin. PLAN 1. Rocephin 1 gram IV q.24 hours. 2. IV hydration with normal saline. 3. public health social worker consultation. 4. Mini-mental status exam. 5. I am greatly concerned about the social situation, and patient would benefit from a Assisted Living or even a intermediate. However, family is determined to take him home to see how he would do there. Sister is aware of the resources available in [place] based on my discussion with her. VIC
[2017-03-08] MEDS ORDERED: TAMSULOSIN HCL 0.4 MG CAPSULE PO SCH (21:00)
[2017-03-08] MEDS ORDERED: DONEPEZIL HCL 10 MG TABLET PO SCH (21:00)
[2017-03-08] MEDS ORDERED: cefTRIAXone SODIUM 1,000 MG in NORMAL SALINE MINI-BAG+ 100 ML IV SCH (21:00)
[2017-03-09] MEDS: NORMAL SALINE 1,000 ML IV SCH (03:24)
[2017-03-09] MEDS: WARFARIN SODIUM 2 MG TABLET PO SCH (09:16)
[2017-03-09] MEDS: FINASTERIDE 5 MG TABLET PO SCH (09:16)
[2017-03-09 11:36] VITALS: BP 121/73; PULSE 66; RESP 20; TEMP 98.3; O2SAT 93
[2017-03-09] MEDS ORDERED: WARFARIN SODIUM 2 MG TABLET PO ONE (14:32)
--- NOTE | 2017-03-09 14:37 | DC SUMMARY: IM Note ---
Discharge Summary: IM/Peds Provider: Date of Admission: 03/07/17 Admitting Provider: TARYN GUZMÁN MD Attending Provider: SUSHILA FLORES MD Discharging Provider: SUSHILA FLORES MD Primary Care Provider: Discharge Date: 03/09/17 - Diagnosis (1) UTI (urinary tract infection) due to urinary indwelling Dejesus catheter Status: Acute (2) Enterococcal infection Status: Acute (3) BPH w urinary obs/LUTS Status: Chronic (4) Dementia without behavioral disturbance Status: Chronic Qualifiers: Dementia type: unspecified type Qualified Code(s): F03.90 - Unspecified dementia without behavioral disturbance Hospital Course: This 66-year-old gentleman from [facility] has just moved to [place] with his sister and [id number]. He presented to the [facility] emergency department yesterday with confusion and very cloudy urine in his chronic Dejesus catheter. He was admitted by Dr. Briseno, who transferred the patient to ut since the patient had already been planning to establish with me at [facility]. He improved dramatically overnight with the help of Rocephin and some IV fluids. His urine was clear, and he felt much better. He still had moderate dementia, but evidently this is baseline for him. He is already on donepezil and this was continued. The social media job titles spoke with the patient's sister, who has the main caregiver for the patient. She is in the process of selling some of his assets in [place] and planning on having the patient lives here in [place] with her and her . She will return in about 2 weeks. In the meantime the patient 's [id number] will be caring for him at home. Will also have the home health care nurse visit him to do INR checks and catheter care. Patient's culture grew enterococcus greater than 100,000 colonies. I switched him to amoxicillin 500 mg 3 times daily for 10 days. I will have the nurse change his catheter on 03/15/17 and check his INR then. His INR here in the hospital was 1.4 on a dosing of 6 mg daily of warfarin. I have increased him to 7 mg daily. 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 Unfortunately, he also has G6PD deficiency so that risk for anemia. Patient has had a Dejesus catheter since that admission to [facility] on 01/30/17 when he had acute kidney injury from obstructive nephropathy. He was started on finasteride in tamsulosin then. I have doubled his tamsulosin dose, and will see the patient on 03/16/17. I may consider discontinuing the Dejesus then with close follow-up. He has an appointment with Dr. Cortés on 03/28 to look into his urologic problems further. - Time Spent with Patient Total time spent providing and/or coordinating discharge services: Discharge - Patient/Caregiver Discharge Instructions Activity Level: As tolerated Diet: Regular Additional Instructions: Keep using Dejesus catheter. See care instructions and perform as printed. Attend all follow up appointments as listed. Complete antibiotics entirely. Do not stop just because symptoms resolve. Follow up: BETHANY CORTÉS MD [MD] - 03/28/17 9:30 am (PT ALREADY HAD A SCHEDULED APPT IN THE [facility]ICE ) SUSHILA FLORES MD [Primary Care Provider] - 03/16/17 10:20 am Home Medications: Amoxicillin [Amoxil*] 500 mg PO TID #30 cap Warfarin Sodium 1 mg PO DAILY #30 tab Warfarin Sodium [Coumadin] 6 mg PO DAILY #30 tab Orders: Home Health Care Location: Determined By Patient Disposition: HOME, SELF-CARE Discharge Summary Data - Medication History Medication History: Home Medications Cyanocobalamin/FA/Pyridoxine [Virt-Juanjose Forte Tablet] 1 each PO DAILY 03/08/17 Finasteride [Finasteride*] 5 mg PO DAILY 03/08/17 Acetaminophen [Tylenol*] 650 mg PO Q6H PRN 03/09/17 Amoxicillin [Amoxil*] 500 mg PO TID #30 cap 03/09/17 Donepezil HCl [Aricept*] 10 mg PO DAILY #30 tab 03/09/17 Tamsulosin HCl [Flomax*] 0.8 mg PO HS #60 cap 03/09/17 Warfarin Sodium 1 mg PO DAILY #30 tab 03/09/17 Warfarin Sodium [Coumadin] 6 mg PO DAILY #30 tab 03/09/17 Inpatient Medications 03/08/17 15:30 Finasteride [Proscar] 5 mg PO DAILY 03/08/17 16:00 Warfarin Sodium [Coumadin] 6 mg PO DAILY 03/08/17 21:00 Donepezil HCl [Aricept] 10 mg PO HS Tamsulosin HCl [Flomax] 0.4 mg PO HS 03/09/17 13:38 Amoxicillin [Amoxil] 500 mg PO TID 03/09/17 16:00 Warfarin Sodium [Coumadin] 1 mg PO ONCE DAILY @1600 Procedures and tests throughout hospitalization: Pending Orders 03/08/17 15:30 Finasteride [Proscar] 5 mg PO DAILY 03/08/17 16:00 Warfarin Sodium [Coumadin] 6 mg PO DAILY 03/08/17 16:28 Drag Seiner Consult [CM] Routine 03/08/17 21:00 Donepezil HCl [Aricept] 10 mg PO HS Tamsulosin HCl [Flomax] 0.4 mg PO HS 03/09/17 13:38 Amoxicillin [Amoxil] 500 mg PO TID 03/09/17 14:02 Discharge ONCE 03/09/17 16:00 Warfarin Sodium [Coumadin] 1 mg PO ONCE DAILY @1600 IM: Discharge Physical Exam - I&O/Vital Signs I&O: Intake & Output 03/09/17 03/09/17 03/09/17 05:59 13:59 21:59 Intake Total 1550 Output Total 2550 Balance -1000 Intake: Oral 1550 Output: Urine 2550 Other: Urine Appearance Sediment Clear Sediment Urine Color Brown Yellow Ariza Straw Ariza Dark Red Stool Characteristics Formed Brown Voiding Method Toilet Self-Catheterization # Voids 3 # Bowel Movements 2 Vital Signs: Last Vital Signs Temp 36.8 C 03/09/17 11:00 Pulse 66 03/09/17 11:00 Resp 20 03/09/17 11:00 BP 121/73 03/09/17 11:00 Pulse Ox 93 03/09/17 11:00 Oxygen Delivery Method Room Air - Constitutional General appearance: Present: average body habitus - Head Head exam: Present: atraumatic - ENT ENT exam: Present: mucous membranes moist - Cardiovascular Cardiovascular exam: Present: RRR. Absent: systolic murmur - GI/Abdominal GI/Abdominal exam: Present: soft. Absent: tenderness - exam: Absent: circumcision - Extremities Exam Extremities exam: Absent: calf tenderness, edema - Neurological Exam Neurological exam: Present: alert, normal gait, other (Oriented to the person, month, and year, but not day or date. He thought Servando Rush was the president. )
[2017-03-09] MEDS ORDERED: AMOXICILLIN 250 MG CAPSULE PO SCH (15:00)
[2017-03-09] MEDS ORDERED: WARFARIN SODIUM 2 MG TABLET PO SCH (16:00)
== END 2017-03-09 14:02 | disposition home or self-care (01) ==
LOC: ER 19:00 → IN 21:24
PROVIDERS: ADMIT Family Medicine; ATTEND Family Medicine
DX: T83.511A Infection and inflammatory reaction due to indwelling urethral catheter, initial encounter (principal); N39.0 Urinary tract infection, site not specified; B95.2 Enterococcus as the cause of diseases classified elsewhere; N40.1 Benign prostatic hyperplasia with lower urinary tract symptoms; N13.8 Other obstructive and reflux uropathy; Z86.711 Personal history of pulmonary embolism; F03.90 Unspecified dementia, unspecified severity, without behavioral disturbance, psychotic disturbance, mood disturbance, and anxiety; D55.0 Anemia due to glucose-6-phosphate dehydrogenase [G6PD] deficiency; G47.39 Other sleep apnea; Z90.81 Acquired absence of spleen; Z79.01 Long term (current) use of anticoagulants; Z79.899 Other long term (current) drug therapy
CPT/HCPCS: 36415; 80048; 85025; 85610; 94760; 96365; 96366; 99220; 99284; 99285; G0378; J0696; J7030